=== PATIENT | male | born 1980 | race Caucasian/White ===

== ENCOUNTER 2021-10-05 08:02 | Emergency (ER) | payer OTHER, SELFPAY ==
--- NOTE | 2021-10-05 08:10 | ED.URI ---
HPI - URI/Sore Throat General Chief Complaint: Upper Respiratory Infection Stated Complaint: tight chest cough lightheaded Time Seen by Provider: 10/05/21 08:21 Source: patient and RN notes reviewed Mode of arrival: ambulatory Limitations: no limitations History of Present Illness HPI Narrative: 41-year-old male presents with concern for cough, nasal drainage, nasal congestion. Reports symptoms started on of last week, reports he has had worsening in his cough in the last 48 hours. He reports he has been using [id number] cough medicine with little relief. Reports disturbing overnight cough. He denies fever, body aches, chills, sweats. Denies any known sick contacts. MD elicited complaint: cough and sore throat Related Data Home Medications Medication Instructions Recorded Confirmed gabapentin 10/05/21 metformin mg 10/05/21 metoprolol succinate PO 10/05/21 paroxetine HCl mg PO 10/05/21 rosuvastatin mg 10/05/21 Allergies Allergy/AdvReac Type Severity Reaction Status Date / Time No Known Allergies Allergy Verified 10/05/21 08:21 Review of Systems Review of Systems: CONSTITUTIONAL: Denies malaise, chills, sweats, or fever. EYES: Denies visual changes, redness, or discharge. ENT: Reports rhinorrhea, congestion. Denies sinus pain, otalgia and sore throat. CARDIOVASCULAR: Denies chest pain, palpitations, or edema. RESPIRATORY: Reports cough, dyspnea. GASTROINTESTINAL: Denies abdominal pain, nausea, vomiting, diarrhea SKIN: Denies rash or itching. MUSCULOSKELETAL: Denies myalgia. NEUROLOGIC: Denies headache. All systems reviewed & are unremarkable except as noted in HPI and below PMFSH Comments At time of signature, agree with nursing past medical, surgical, social and family history. There is no relevant family history pertinent to the presenting complaint Exam Narrative: GENERAL: Well-appearing, well-nourished, and in no acute distress. HEAD: Normocephalic EYES: PERRLA, conjunctivae clear ENT: Nares clear, clear discharge. Mucous membranes moist. TM pearly riley with sharp light reflex bilaterally; no tragal tenderness. Oropharynx not erythematous without lesions. Tonsils not enlarged and without exudate, no drooling, no hoarseness, no trismus, uvula midline. NECK: Supple. No lymphadenopathy CHEST: Clear to auscultation, breath sounds equal. No wheezing, rhonchi, rales, or stridor. No respiratory distress, speaks in full sentences. HEART: Regular rate and rhythm. No murmur heard. SKIN: Warm, dry, no rash. NEURO: Alert and oriented x3. PSYCH: Normal mood and affect Course Course Emergency Course: Patient is aware of diagnosis, understands and agrees to treatment plan. Anticipatory guidance given. Patient agrees to follow-up as directed and is aware of reasons to seek care at the emergency department. Portions of this record may have been created with voice recognition software Level of Care: Express Care Visit Vital Signs Vital signs: Reviewed. MDM - URI/Sore Throat MDM Narrative Medical decision making narrative: Differential diagnosis considered: Fitzgerald virus, strep pharyngitis, allergic rhinitis, upper respiratory tract infection, sinusitis, rhinosinusitis, nasopharyngitis. viral pharyngitis, otitis media, otitis externa, pneumonia, bronchitis, viral cough syndrome, viral syndrome, and influenza. Exam findings show no acute concerns or changes; patient is non-toxic appearing and is in no distress. Patient is appropriate for outpatient treatment and follow-up. Lab Data Attestation: I reviewed the patient's lab results. Critical Care Time Critical Care Time Critical Care Time: No Discharge Plan Discharge Clinical Impression: Bronchitis Patient Disposition: Home, Self-Care Condition: Stable Instructions: Acute Bronchitis (ED) Additional Instructions: Viral illness may last between 7-21 days; antibiotics do not cure viral illness and are NOT recommended at this time. Recomm
[2021-10-05 08:16] VITALS: BP 131/80; PULSE 96; RESP 22; TEMP 36.8; O2SAT 100
== END 2021-10-05 08:42 | disposition home or self-care (01) ==
PROVIDERS: Emergency Provider Nurse Practitioner; PCP Family Medicine
DX: J40 Bronchitis, not specified as acute or chronic (principal); E78.00 Pure hypercholesterolemia, unspecified; I10 Essential (primary) hypertension; E11.9 Type 2 diabetes mellitus without complications
CPT/HCPCS: 99213; G0463

== ENCOUNTER 2022-07-12 08:29 | Emergency (ER) | payer OTHER, SELFPAY ==
--- NOTE | ~2022-07-12 | XR_ITS ---
XR foot RT min 3V DATE: 07/12/2022 08:58 INDICATION: Stepped on nail on 07/10/2022. Swelling. Diabetes. 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 No fracture or dislocation, periosteal reaction or bone destruction. No radiopaque foreign body or subcutaneous emphysema. IMPRESSION: No radiopaque foreign body or subcutaneous emphysema, fracture or dislocation Reviewed, dictated and finalized at location [facility]. [facility] IMPRESSION: No radiopaque foreign body or subcutaneous emphysema, fracture or d islocation
--- NOTE | 2022-07-12 08:31 | ED.SKABFB ---
HPI - Skin/Abscess/Foreign Bdy General Chief complaint: Skin/Abscess/Foreign Body Stated complaint: right foot stepped on nail Time Seen by Provider: 07/12/22 08:31 Source: patient and RN notes reviewed History of Present Illness HPI narrative: Patient is a 42-year-old male who presents to urgent care with complaints of right great toe pain after stepping on a nail on Saturday. Patient states the swelling has increased and he is having more severe pain. Patient does have an appointment with his PCP tomorrow. He has been taking Tylenol and ibuprofen for his pain. Patient is uncertain on when the last tetanus shot was. Patient is also diabetic. Denies any fever, nausea or vomiting. No other acute complaints. No acute distress noted. Patient aware of the of care. Some parts of this dictation were generated by voice recognition software and may contain typographical and/or grammatical inaccuracies. Related Data Home Medications Medication Instructions Recorded Confirmed gabapentin 100 mg capsule 100 mg PO TID 10/05/21 07/12/22 metformin 500 mg tablet 500 mg PO BID 10/05/21 07/12/22 metoprolol succinate 50 mg 50 mg PO DAILY 10/05/21 07/12/22 tablet,extended release 24 hr paroxetine HCl 20 mg tablet 20 mg PO DAILY 10/05/21 07/12/22 rosuvastatin 10 mg tablet 10 mg PO DAILY 10/05/21 07/12/22 budesonide-formoterol HFA 80 inhalation 07/12/22 07/12/22 mcg-4.5 mcg/actuation aerosol inhaler (Symbicort) Allergies Allergy/AdvReac Type Severity Reaction Status Date / Time No Known Allergies Allergy Verified 07/12/22 08:46 Review of Systems Review of Systems: CONSTITUTIONAL: Denies fever, chills, or sweats. EYES: Denies visual changes, redness, or discharge. ENT: Denies rhinorrhea, congestion, sore throat, or otalgia. CARDIOVASCULAR: Denies chest pain, palpitations, or edema. RESPIRATORY: Denies cough or dyspnea. GASTROINTESTINAL: Denies abdominal pain, nausea, vomiting, or diarrhea. GENITOURINARY: Denies dysuria or hematuria. SKIN: Denies rash or itching. MUSCULOSKELETAL: Reports of right great toe pain and swelling NEUROLOGIC: Denies headache, numbness, or weakness. All other systems reviewed are negative, except as documented in HPI. PMFSH Comments At the time of my signature, I reviewed and agree with the nursing past medical, surgical, social, and family history. There is no relevant family history pertinent to the patient complaint. Exam Narrative: GENERAL: This is a well-nourished, well-developed patient, in no apparent distress. HEAD: normocephalic, atraumatic. EYES: PERRL. Sclera clear/white. Vision is grossly intact. EARS: External ears normal NOSE: External nose normal with no obvious nasal discharge, nares without redness, no rhinorrhea. THROAT: Mucous membranes moist NECK: Neck supple SKIN: warm, intact with no suspicious lesions or rash, good texture and turgor. NEURO: awake, alert, and oriented to person, place and time. There were no obvious focal neurologic abnormalities. EXTREMITIES: moderate right great toe edema with mild erythema, positive right pedal pulse with capillary refill less than 2 seconds. Pain exacerbated on weight-bearing. No obvious foreign body to plantar aspect of the right great toe. Course Course Level of Care: Express Care Visit Vital Signs Vital signs: Vital Signs Temperature 97.9 F 07/12/22 08:36 Pulse Rate 73 07/12/22 08:36 Respiratory Rate 20 07/12/22 08:36 Blood Pressure 138/76 07/12/22 08:36 Pulse Oximetry 99 07/12/22 08:36 Oxygen Delivery Room Air 07/12/22 08:36 Temperature 97.9 F 07/12/22 08:36 Pulse Rate 73 07/12/22 08:36 Respiratory Rate 20 07/12/22 08:36 Blood Pressure 138/76 07/12/22 08:36 Pulse Oximetry 99 07/12/22 08:36 Oxygen Delivery Room Air 07/12/22 08:36 Reviewed MDM - Skin/Abscess/Foreign Bdy MDM Narrative Medical decision making narrative: reviewed x-ray results with the patient. He i
[2022-07-12 08:36] VITALS: BP 138/76; PULSE 73; RESP 20; TEMP 36.6; O2SAT 99
[2022-07-12] MEDS: TETANUS,DIPHTHERIA,AC PERTUSSIS ADULT (0.5 ML) BOOSTRIX IM (08:59)
== END 2022-07-12 09:20 | disposition home or self-care (01) ==
PROVIDERS: Emergency Provider Nurse Practitioner Family; PCP Family Medicine
DX: L03.031 Cellulitis of right toe (principal); Z23 Encounter for immunization; E78.00 Pure hypercholesterolemia, unspecified; I10 Essential (primary) hypertension; F41.9 Anxiety disorder, unspecified; E11.40 Type 2 diabetes mellitus with diabetic neuropathy, unspecified; Z79.84 Long term (current) use of oral hypoglycemic drugs
CPT/HCPCS: 73630; 90471; 90715; 99213; G0463

== ENCOUNTER 2022-08-16 11:21 | Emergency (ER) | payer OTHER, SELFPAY ==
--- NOTE | 2022-08-16 11:27 | ED.URI ---
HPI - URI/Sore Throat General Chief Complaint: Upper Respiratory Infection Stated Complaint: Chest Congestion/Shortness of Breath Time Seen by Provider: 08/16/22 11:27 Source: patient and RN notes reviewed History of Present Illness HPI Narrative: Patient is a 42-year-old male who presents to urgent care with complaints of shortness of breath, cough, sinus pressure and pain. Patient states that it started Saturday. Patient has been on several antibiotics since June for a toe infection. Patient states he just finished azithromycin on Saturday. Patient has been taking Benadryl and Mucinex. No other acute complaints. No acute distress noted. Patient aware of the plan of care. Some parts of this dictation were generated by voice recognition software and may contain typographical and/or grammatical inaccuracies. Related Data Home Medications Medication Instructions Recorded Confirmed gabapentin 100 mg capsule 100 mg PO TID 10/05/21 08/16/22 metformin 500 mg tablet 500 mg PO BID 10/05/21 08/16/22 metoprolol succinate 50 mg 50 mg PO DAILY 10/05/21 08/16/22 tablet,extended release 24 hr paroxetine HCl 20 mg tablet 20 mg PO DAILY 10/05/21 08/16/22 rosuvastatin 10 mg tablet 10 mg PO DAILY 10/05/21 08/16/22 Allergies Allergy/AdvReac Type Severity Reaction Status Date / Time No Known Allergies Allergy Verified 08/16/22 11:35 Review of Systems Review of Systems: CONSTITUTIONAL: reports of chills and sweats EYES: Denies visual changes, redness, or discharge. ENT: Reports sinus congestion, pressure, postnasal drainage and sore throat CARDIOVASCULAR: Denies chest pain, palpitations, or edema. RESPIRATORY: Reports of cough with intermittent dyspnea GASTROINTESTINAL: Denies abdominal pain, nausea, vomiting, or diarrhea. GENITOURINARY: Denies dysuria or hematuria. SKIN: Denies rash or itching. MUSCULOSKELETAL: Denies back pain, joint pain, or myalgia. NEUROLOGIC: Denies headache, numbness, or weakness. All other systems reviewed are negative, except as documented in HPI. PMFSH Comments At the time of my signature, I reviewed and agree with the nursing past medical, surgical, social, and family history. There is no relevant family history pertinent to the patient complaint. Exam Narrative: GENERAL: This is a well-nourished, well-developed patient, in no apparent distress. HEAD: normocephalic, atraumatic. EYES: PERRL. Sclera clear/white. Vision is grossly intact. EARS: External ears normal, auditory canals clear and without drainage, TMs normal without perforation. Hearing grossly intact. NOSE: External nose normal with no obvious nasal discharge, nares without redness, clear rhinorrhea. THROAT: Mucous membranes moist, moderate NECK: Neck supple, non-tender without lymphadenopathy erythema to posterior pharynx with moderate postnasal drainage CARDIOVASCULAR: Regular rate and rhythm RESPIRATORY: Clear to auscultation. Breath sounds equal bilaterally. No wheezes, rales, or rhonchi. SKIN: warm, intact with no suspicious lesions or rash, good texture and turgor. NEURO: awake, alert, and oriented to person, place and time. There were no obvious focal neurologic abnormalities. EXTREMITIES: No clubbing, cyanosis, or edema. Course Course Level of Care: Express Care Visit Vital Signs Vital signs: Vital Signs Temperature 97.9 F 08/16/22 11:30 Pulse Rate 90 08/16/22 11:30 Respiratory Rate 18 08/16/22 11:30 Blood Pressure 147/82 H 08/16/22 11:30 Pulse Oximetry 99 08/16/22 11:30 Oxygen Delivery Room Air 08/16/22 11:30 Temperature 97.9 F 08/16/22 11:39 Pulse Rate 90 08/16/22 11:39 Respiratory Rate 18 08/16/22 11:39 Blood Pressure 147/82 H 08/16/22 11:39 Pulse Oximetry 99 08/16/22 11:39 Oxygen Delivery Room Air 08/16/22 11:39 Reviewed- Patient is informed that they may have pre-hypertension or hypertension based on a blood pressure reading in the department. I recommend the patient call the
[2022-08-16 11:30] VITALS: BP 147/82; PULSE 90; RESP 18; TEMP 36.6; O2SAT 99
[2022-08-16 11:39] VITALS: BP 147/82; PULSE 90; RESP 18; TEMP 36.6; O2SAT 99
== END 2022-08-16 12:11 | disposition home or self-care (01) ==
PROVIDERS: Emergency Provider Nurse Practitioner Family; PCP Family Medicine
DX: J06.9 Acute upper respiratory infection, unspecified (principal)
CPT/HCPCS: 87081; 87804; 87880; 99213; G0463

== ENCOUNTER 2023-06-19 11:25 | Emergency (ER) | payer OTHER, SELFPAY ==
[2023-06-19 11:29] VITALS: BP 157/80; PULSE 86; RESP 16; TEMP 36.7; O2SAT 97
--- NOTE | 2023-06-19 11:53 | ED.GENADULT ---
HPI - General Adult General Chief complaint: Upper Respiratory Infection Stated complaint: sob/chest congestion/wheezing Source: patient, RN notes reviewed and old records reviewed Mode of arrival: ambulatory Limitations: no limitations History of Present Illness HPI narrative: 43-year-old male presents to Express Care with complaints sinus congestion, sinus pressure, headache, productive cough, shortness of breath this started 5-6 days ago. Patient taking [id number] medications with no relief. Patient denies weakness, dizziness, chest pain. MD complaint: Cough, congestion Onset (ago): day(s) (6) Related Data Home Medications Medication Instructions Recorded Confirmed gabapentin 100 mg capsule 100 mg PO TID 10/05/21 08/16/22 metformin 500 mg tablet 500 mg PO BID 10/05/21 08/16/22 metoprolol succinate 50 mg 50 mg PO DAILY 10/05/21 08/16/22 tablet,extended release 24 hr paroxetine HCl 20 mg tablet 20 mg PO DAILY 10/05/21 08/16/22 rosuvastatin 10 mg tablet 10 mg PO DAILY 10/05/21 08/16/22 Allergies Allergy/AdvReac Type Severity Reaction Status Date / Time No Known Allergies Allergy Verified 06/19/23 12:03 Review of Systems Constitutional: Constitutional: Reports no additional constitutional complaints, Reports body ache(s), Denies chills, Denies fatigue, Denies fever(s) and Reports headache(s) Eyes: Eyes: Reports no additional eye complaints and Denies blurry vision ENT: Reports system reviewed and no additional complaints, except as documented, Denies vertigo, Denies dizziness, Denies ear discharge, Denies otalgia, Denies facial pain, Denies headache(s), Reports nasal congestion, Reports nasal discharge, Reports sinus pain, Reports sinus pressure and Denies sore throat Cardiovascular: Cardiovascular: Reports no additional cardiovascular complaints, Denies chest pain, Denies chest pain at rest, Denies rapid heart rate and Denies dyspnea Respiratory: Respiratory: Reports no additional respiratory complaints, Reports chest congestion, Reports cough, Denies pain on inspiration, Reports pain with cough and Reports dyspnea Gastrointestinal: Gastrointestinal: Denies abdominal pain, Denies diarrhea, Denies nausea and Denies vomiting Integumentary/Breasts: Skin/Breast: Denies rash Neurologic: Reports system reviewed and no additional complaints, except as documented, Denies vertigo, Denies dizziness and Denies headache(s) Endocrine: Endocrine: Denies fatigue PMFSH Comments At the time of my signature, I reviewed and agree with the nursing past medical, surgical, social, and family history. There is no relevant family history pertinent to the patient complaint. Exam Const: General: cooperative, no acute distress, ill appearing acutely and well nourished Nutritional Appearance: well nourished Orientation/consciousness: patient oriented x3 Limitations: no limitations HENMT: Head: normal to inspection and normocephalic Ears: external ears normal, TM's normal bilaterally, mastoids normal and Abnormal EAC present Face/Nose/Sinus: normal facial exam Face and sinus: normal facial exam Mouth: Yes Normal oral and palatal mucosa present, Yes oropharynx normal and Yes moist mucous membranes Throat: tonsils normal, uvula midline, posterior oropharynx abnormal ( mild erythema) and no uvular edema Eyes: General: appearance normal, both eyes and all related structures Sclera: sclerae normal Pupils: Equal, round and reactive pupils present Resp: Effort & Inspection: normal respiratory effort, able to speak in complete sentences, no audible wheezes, no cough, no respiratory distress and no retractions Auscultation: clear to auscultation bilaterally, no crackles, no rales, no rhonchi and no wheezes Cardio: Rate: regular rate Rhythm: regular rhythm Skin: General skin exam: normal color and no rashes or lesions noted Neuro: General: patient oriented x3 Cranial nerves: Yes Equal, round and reactive pupils present Psych:
== END 2023-06-19 12:11 | disposition home or self-care (01) ==
PROVIDERS: Emergency Provider Registered Nurse; PCP Family Medicine
DX: J01.90 Acute sinusitis, unspecified (principal); E78.00 Pure hypercholesterolemia, unspecified; I10 Essential (primary) hypertension; E11.9 Type 2 diabetes mellitus without complications
CPT/HCPCS: 99213; G0463